=== PATIENT | female | born 1995 | race Two or more races ===

== ENCOUNTER 2023-12-18 18:09 | Outpatient (CLI) | payer BC | END 2023-12-18 18:10 | disposition home or self-care (01) | LOC: LAB 18:09 | PROVIDERS: ATTEND Registered Nurse | DX: Z13.9 Encounter for screening, unspecified (principal); Z01.84 Encounter for antibody response examination | CPT/HCPCS: 81599; 86706; 86735; 86765; 86787; 87340 ==

== ENCOUNTER 2023-12-25 15:25 | Outpatient (CLI) | payer BC ==
--- NOTE | 2023-12-25 16:38 | XRAY Report ---
PROCEDURE: Chest 2V INDICATIONS: LATENT TB INFECTION TECHNIQUE: 2 views of the chest were acquired. COMPARISON: Chest radiograph on December 10, 2022 FINDINGS: Surgical changes and devices: None. Lungs and pleura: No pleural effusions or pneumothorax. Lungs are clear. No radiographic evidence of tuberculosis. Mediastinum: Mediastinal contours appear normal. Heart size is normal. Bones and chest wall: No suspicious bony lesions. Overlying soft tissues appear unremarkable. IMPRESSION: Normal chest radiograph. No radiographic evidence of tuberculosis. Reviewed by: Mickie Valero MD on 12/25/2023 4:37 PM PDT Approved by: Mickie Valero MD on 12/25/2023 4:37 PM PDT Station ID: [id number]
== END 2023-12-25 15:26 | disposition home or self-care (01) ==
LOC: DI 15:25
PROVIDERS: ATTEND Physician Assistant Medical
DX: Z11.7 Encounter for testing for latent tuberculosis infection (principal)